=== PATIENT | male | born 2000 | race Two or more races ===

== ENCOUNTER 2020-03-26 13:14 | Emergency (ER) | payer SELFPAY ==
[~2020-03-26] VITALS: Ht 177.8 cm; Wt 98.9 kg
[2020-03-26 13:19] VITALS: Ht 177.8 cm; Wt 98.9 kg
[2020-03-26 14:55] VITALS: BP 147/89
== END 2020-03-26 14:55 | disposition home or self-care (01) ==
LOC: ED 13:14
DX: S46.912A Strain of unspecified muscle, fascia and tendon at shoulder and upper arm level, left arm, initial encounter (principal); W08.XXXA Fall from other furniture, initial encounter; Y93.89 Activity, other specified; Y92.89 Other specified places as the place of occurrence of the external cause; Y99.8 Other external cause status
CPT/HCPCS: J1885; Q0092